=== PATIENT | male | born 1955 | race Caucasian/White ===

== ENCOUNTER 2019-10-18 11:20 | Outpatient (CLI) | payer MEDICARE, BC, SELFPAY ==
--- NOTE | ~2019-10-18 | XR_ITS ---
EXAMINATION: XR hip BI wo pelvis INDICATION: Bilateral hip pain TECHNIQUE: Two views of each hip are obtained. COMPARISON: None available FINDINGS: There is no fracture. There is severe right and moderate left hip osteoarthritis. The soft tissues are unremarkable. The femoral heads are well-seated in their acetabula. IMPRESSION: 1. Severe right and moderate left hip osteoarthritis. Reviewed, dictated and finalized at location A.
== END 2019-10-18 11:21 | disposition home or self-care (01) ==
LOC: CHSIMG 11:23
PROVIDERS: PCP Internal Medicine; Visit Provider Internal Medicine
DX: M25.552 Pain in left hip (principal); M25.551 Pain in right hip
CPT/HCPCS: 73521

== ENCOUNTER 2019-10-30 08:08 | Outpatient (CLI) | payer MEDICARE, BC, SELFPAY ==
--- NOTE | ~2019-10-30 | MR_ITS ---
EXAMINATION: MR hip LT wo con DATE: 10/30/2019 10:30 INDICATION: Left hip pain. TECHNIQUE: Magnetic resonance imaging (MRI) of the left hip was performed without intravenous contras t. Sequences included axial and coronal PD-weighted FS FSE and axial T1-weighted FSE of the pelvis. S equences of the hip included 2D FIESTA, T1-weighted fast GRE, and axial, coronal, and sagittal PD-josé miguel ghted FS FSE. COMPARISON: Pelvis and hip radiographs 10/18/2019 FINDINGS: Bones/cartilage: Bone alignment is normal. No fracture. There is decreased femoral head/neck offset, consistent with f emoral acetabular impingement. There is severe left hip osteoarthritis including full-thickness carti yusuf loss superiorly, superolateral acetabular bone marrow edema, and marginal osteophytes. Labrum: There is widespread tearing of the left acetabular labrum. Fluid: There is a small left hip joint effusion. Soft tissues: There is a 4.0 x 2.7 cm mass in the subcutaneous left buttock at the intergluteal cleft. The left angie opsoas tendon at left gluteal tendons are normal. There is moderate tendinopathy of the left hamstrin g origins. Symmetric prominent fat in the inguinal canals may be small hernias. IMPRESSION: 1. Severe left hip osteoarthritis. 2. Small left hip joint effusion. 3. 4.0 x 2.7 cm mass in the subcutaneous left buttock the intergluteal cleft, which may be a sebaceou s cyst. Neoplasm cannot be excluded. Reviewed, dictated and finalized at location A. IMPRESSION: 1. Severe left hip osteoarthritis. 2. Small left hip joint effusion. 3. 4.0 x 2.7 cm mass in the subcutaneous left buttock the intergluteal cleft, w hich may be a sebaceous cyst. Neoplasm cannot be excluded.
--- NOTE | ~2019-10-30 | MR_ITS ---
EXAMINATION: MR hip RT wo con DATE: 10/30/2019 10:30 INDICATION: Right hip pain. TECHNIQUE: Magnetic resonance imaging (MRI) of the right hip was performed without intravenous contra st. Sequences included axial and coronal PD-weighted FS FSE and axial T1-weighted FSE of the pelvis. Sequences of the hip included 2D FIESTA, T1-weighted fast GRE, and axial, coronal, and sagittal PD-we ighted FS FSE. COMPARISON: Pelvis and right hip radiographs 10/18/2019 FINDINGS: Bones/cartilage: Bone alignment is normal. No fracture. There is decreased right femoral head/neck offset, consistent with femoral acetabular impingement. There is advanced right hip osteoarthritis including full-thickn ess cartilage loss superiorly, cortical remodeling, subchondral edema like marrow signal intensity, a nd osteophytes. Labrum: There is widespread tearing of the right acetabular labrum. Fluid: There is a small right hip joint effusion. There is mild right trochanteric bursitis. Soft tissues: The right gluteal tendons and iliopsoas tendon are normal. There is moderate tendinopathy of right rios mstring origin. IMPRESSION: 1. Advanced right hip osteoarthritis. Reviewed, dictated and finalized at location A.
== END 2019-10-30 08:09 | disposition home or self-care (01) ==
PROVIDERS: PCP Internal Medicine; Visit Provider Internal Medicine
DX: M25.552 Pain in left hip (principal); M25.551 Pain in right hip
CPT/HCPCS: 73721

== ENCOUNTER 2019-12-08 09:27 | Outpatient (CLI) | payer MEDICARE, BC, SELFPAY ==
--- NOTE | ~2019-12-08 | XR_ITS ---
EXAMINATION: XR chest 2V DATE: 12/08/2019 10:38 INDICATION: COPD and hyperlipidemia TECHNIQUE: PA and lateral views of the chest are obtained. COMPARISON: None available FINDINGS: The lungs are free of acute opacities. There is no pleural effusion or pneumothorax. The ca rdiomediastinal silhouette is normal. There is mild thoracic spondylosis. IMPRESSION: 1. No acute cardiopulmonary abnormality. Reviewed, dictated and finalized at location A.
--- NOTE | 2019-12-08 10:15 | ECG_ITS ---
Measurements Intervals [place] Rate: 66 P: 30 UT: 148 QRS: 10 QRSD: 98 T: 17 QT: 381 QTc: 402 Interpretive Statements SINUS RHYTHM EARLY PRECORDIAL R/S TRANSITION BASELINE ARTIFACT- I, II, III, AVR, AVL, AVF BORDERLINE ECG Electronically Signed On 12-08-2019 10:38:33 CDT by Luis Viramontes D.O.
[2019-12-08 10:46] LABS: Basophils Percent Auto 0.5 % (0.2-1.2); Eosinophils Absolute Auto 0.1 K/mm3 (0-0.3); Eosinophils Percent Auto 0.7 % (0-4.4); Hematocrit 44.8 % (42.0-52.0); Hemoglobin 14.9 g/dL (14.0-18.0); Immature Granulocyte Absolute 0.04 K/mm3 (0.00-0.031); Immature Granulocyte Percent A 0.5 % (0-0.5); Lymphocytes Absolute Auto 1.43 K/mm3 (0.9-3.2); Lymphocytes Percent Auto 17.1 % (18.3-44.2); Mean Corpuscular HGB Conc 33.3 g/dl (32-36); Mean Corpuscular Volume 93.1 fl (80-100); Monocytes Absolute Auto 0.5 K/mm3 (0.1-0.6); Monocytes Percent Auto 5.4 % (2.6-8.5); Neutrophils Absolute Auto 6.3 K/mm3 (1.3-6.7); Neutrophils Percent Auto 75.8 % (45.5-73.1); Platelet Count Result 238 k/mm3 (150-375); Red Blood Count 4.81 M/mm3 (4.6-6.20); Red Cell Distribution Width 13.3 % (11.5-14.5); White Blood Count 8.4 K/mm3 (4.5-10.0)
[2019-12-08 11:03] LABS: Urine Cotinine POSITIVE
[2019-12-08 11:30] LABS: Albumin Level 4.3 g/dL (3.5-5.1); Anion Gap 7 mmol/L (8-16); Blood Urea Nitrogen 20 mg/dL (9-20); Calcium 8.9 mg/dL (8.4-10.2); Carbon Dioxide 23 mmol/L (22-30); Chloride 108 mmol/L (98-107); Estimated Glomerular Filt Rate > 60; Glucose 104 mg/dL (75-110); Potassium 4.7 mmol/L (3.4-5.0); Sodium 138 mmol/L (137-145)
[2019-12-08 11:55] LABS: Hemoglobin A1C 5.7 % (<5.7)
== END 2019-12-08 09:28 | disposition home or self-care (01) ==
PROVIDERS: PCP Internal Medicine; Visit Provider Orthopaedic Surgery
DX: Z01.818 Encounter for other preprocedural examination (principal); M16.11 Unilateral primary osteoarthritis, right hip
CPT/HCPCS: 36415; 71046; 80048; 80307; 82040; 83036; 85025; 86850; 86900; 86901; 87070; 93005

== ENCOUNTER 2020-08-19 06:00 | Emergency (ER) | payer MEDICARE, BC, SELFPAY ==
[2020-08-19 06:00] VITALS: BP 152/93; PULSE 65; RESP 20; TEMP 36.6; O2SAT 99
--- NOTE | 2020-08-19 06:06 | ED.EYEPROB ---
HPI - Eye Problem General Chief complaint: Eye Problems Stated complaint: Foreign body in right eye Time Seen by Provider: 08/19/20 06:05 Source: patient Mode of arrival: ambulatory Limitations: no limitations History of Present Illness HPI Narrative: Patient was grinding 2 days ago. Since then he has felt he has something in his right eye. He complains of severe sharp discomfort, not relieved by irrigation at home. Associated excess tearing. nothing has decreased the discomfort. No other associated signs/symptoms. He has been continually suffering with this. chief complaint: eye pain Onset (ago): day(s) Onset description: sudden Duration: constant Location: right eye Eye Symptoms: photophobia Place: home Mechanism: occurred while hammering/grinding Severity: severe Severity scale (1-10): 6 If Pain, Quality: sharp Related Data Home Medications Medication Instructions Recorded Confirmed esomeprazole magnesium 40 mg PO DAILY PRN 03/22/19 08/19/20 Allergies Allergy/AdvReac Type Severity Reaction Status Date / Time No Known Allergies Allergy Verified 12/08/19 09:46 Review of Systems Constitutional: Constitutional: Reports no additional constitutional complaints Eyes: Eyes: Reports no additional eye complaints ENT: Reports system reviewed and no additional complaints, except as documented Cardiovascular: Cardiovascular: Reports no additional cardiovascular complaints Respiratory: Respiratory: Reports no additional respiratory complaints Gastrointestinal: Gastrointestinal: Reports no additional gastrointestinal complaints Genitourinary: Genitourinary: Reports no additional male genitourinary complaints Musculoskeletal: Musculoskeletal: Reports no additional musculoskeletal complaints Integumentary/Breasts: Skin/Breast: Reports system reviewed and no additional complaints, except as docu Neurologic: Reports system reviewed and no additional complaints, except as documented Psychiatric: Psychiatric: Reports no additional psychiatric complaints Endocrine: Endocrine: Reports no additional endocrine complaints Hematologic/Lymphatic: Hematologic/Lymphatic: Reports no additional hematologic/lymphatic complaints Allergic/Immunologic: Allergic/Immunologic: Reports no additional allergic/immunologic complaints PMFSH Past Medical History Medical History Arthritic-like pain COPD (chronic obstructive pulmonary disease) GERD (gastroesophageal reflux disease) Hyperlipidemia Sleep apnea Surgical History Surgical History History of arthroplasty of both knees Hx of appendectomy Hx of repair of left rotator cuff Family History Family History (Updated 08/19/20 @ 06:35 by Nicolas Sepulveda MD) Other No significant family history Social History Social History (Updated 03/25/19 @ 11:50 by Linda Jaeger APRN) Smoking packs per day: 0.5 Smoking cigarettes per day: 10.0 Years smoked: 25 Smoking pack-years: 12.50 Smoking status: Former smoker Tobacco type: cigarettes Additional smoking assessment comments: QUITE 2004 Alcohol intake: current Drinks per week: 2 Substance use: never Gender identity (if verbalized by the patient): Male Spiritual care concerns: No Exam Const: General: alert Orientation/consciousness: patient oriented x3 HENMT: Ears: external ears normal General nose exam: Normal external nose present Mouth: Yes Normal oral and palatal mucosa present Throat: posterior oropharynx normal Eyes: Other: Eye exam. Eye was examined after placing 3 drops of tetracaine, then fluorescent dye was placed. He appears to have a small corneal abrasion about 3mm just directly above the pupil. He feels a foreign body there. It appears as just a corneal abrasion. No other pathology. Neck: Neck: normal visual inspection Chest: Chest palpation & inspection: nor
[2020-08-19] MEDS: ERYTHROMYCIN OPHTH OINTMENT 3.5 GM TUBE 1 APPLIC RIGHT EYE (06:09)
[2020-08-19] MEDS: TETRACAINE HCL 0.5% OPHTH SOLN 4 ML BTL 1 DROP EACH EYE (06:09)
[2020-08-19] MEDS: DACRIOSE EYE IRRIGATION 118 ML BOTTLE RIGHT EYE (06:09)
[2020-08-19] MEDS: FLUORESCEIN SOD 1 MG/STRIP RIGHT EYE (06:09)
[2020-08-19 06:34] VITALS: BP 150/90; PULSE 74; RESP 20; O2SAT 99
== END 2020-08-19 06:37 | disposition home or self-care (01) ==
PROVIDERS: Emergency Provider Emergency Medicine; PCP Internal Medicine
DX: S05.01XA Injury of conjunctiva and corneal abrasion without foreign body, right eye, initial encounter (principal)
CPT/HCPCS: 99282; 99283; A9270

== ENCOUNTER 2021-05-04 07:40 | Outpatient (CLI) | payer MEDICARE, BC, SELFPAY ==
--- NOTE | ~2021-05-04 | CT_ITS ---
EXAMINATION: CT lung screening EXAM DATE: 05/04/2021 08:09 INDICATION: Personal history of tobacco dependence, Osteoporosis. TECHNIQUE: Spiral low dose CT of the chest without contrast. Axial, coronal and sagittal images were reviewed. The dose-length product (DLP) for this examination was 130.55 mGy-cm. The exposure was t ailored according to patient size (auto mA exposure control), and iterative reconstruction (ASIR) was used as additional dose reduction technique. Comparison is made to prior examination from 02/16/2019 . FINDINGS: The lungs are clear. Tracheobronchial tree is patent. There is no mediastinal, hilar o r axillary lymphadenopathy. There are no pleural or pericardial effusions. There is no pneumothor ax. Heart normal in size. No evidence of coronary arterial calcification. Mild emphysema. Upper a bdomen is unremarkable. There is thoracic spondylosis without osteoblastic or osteolytic lesions id entified. IMPRESSION: Lung-RADS category 1, negative (<1%chance of malignancy); recommend continued LDCT screen ing in 1 year. > Reviewed, dictated and finalized at location A. 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 >
--- NOTE | ~2021-05-04 | DEXA_ITS ---
Bone Density Report Name: GAMALIEL SIMMONS Age: 65 Sex: Male Ethnicity: White Date of : 1955 Indication: osteopenia; prior fracture; rheumatoid arthritis; Referring Provider: Jori Otero Study: Bone densitometry was performed. Exam Date: May 04, 2021 Accession number: [id number] Bone Density: Region BMD T-score Z-score Classification AP Spine(L2, L3, L4) 0.939 -1.6 -0.8 Osteopenia World Health Organization criteria for BMD impression classify patients as: Normal (T-score at or above -1.0), Osteopenia (T-score between -1.0 and -2.5), or Osteoporosis (T-score at or below -2.5). Previous Exams: Region Exam Age BMD T-score BMD Change BMD Change Date g/cm2 vs Baseline vs Previous AP Spine (L2-L4) 05/04/2021 65 0.939 -1.6 -0.024 (-2.5%) -0.024 (-2.5%) 02/22/2019 63 0.963 -1.4 *Denotes significance at 95% confidence level, LSC for AP Spine = 0.022 g/cm2 # Denotes dissimilar scan types or analysis methods Clinical Information Provided by Patient: Have had a previous hip or vertebral fracture Has had a low trauma fracture Has rheumatoid arthritis Has used the following medications: Vitamin D, Calcium Patient maximum height was 70 No regular weight bearing exercise Drinks caffeinated beverages Impression: The patient has low bone mass, based on the Total Spine T-score. The patient has risk factors, including: previous fracture. No significant bone loss was observed. Discussion: INCREASED RISK OF FRACTURE DUE TO HISTORY OF LOW TRAUMA FRACTURE. The patient's previous fracture puts the patient at high risk of a future fracture. In untreated patients, the risk of osteoporotic fracture increases approximately two-fold for each 1.0 SD decrease in T-score. Low bone density is not the only risk factor for fracture; also consider factors such as patient's age, frailty or poor health, risk of falling, risk of injury, previous osteoporotic fracture, family history of osteoporosis, cigarette smoking, low body weight, etc. Not everyone with a low trauma fracture has osteoporosis; osteomalacia and other metabolic bone disorders should also be considered. Patients who have osteoporosis should be evaluated for specific diseases and conditions (secondary causes) that may cause or contribute to bone loss and fracture risk. National Osteoporosis Foundation (NOF) recommends pharmacologic intervention for patients with a prior low trauma hip or vertebral fracture regardless of BMD T-score. The patient should follow a healthful lifestyle (good nutrition with adequate calcium and vitamin D, and appropriate weight-bearing exercise). Follow-Up: Consider a repeat BMD and Vertebral Fracture Assessment (VFA) exam in 2 years or sooner if medically necessary, t
== END 2021-05-04 07:41 | disposition home or self-care (01) ==
LOC: CHSIMG 07:41
PROVIDERS: PCP Internal Medicine; Visit Provider Internal Medicine
DX: Z12.2 Encounter for screening for malignant neoplasm of respiratory organs (principal); Z87.891 Personal history of nicotine dependence; M81.0 Age-related osteoporosis without current pathological fracture
CPT/HCPCS: 71271; 77080

== ENCOUNTER 2021-08-16 08:48 | Outpatient (CLI) | payer MEDICARE, BC, SELFPAY ==
--- NOTE | ~2021-08-16 | XR_ITS ---
EXAMINATION: XR heel RT min 2V DATE: 08/16/2021 09:11 INDICATION: Right-sided Achilles tendinitis. TECHNIQUE: 2 views of right calcaneus were obtained. COMPARISON: None. FINDINGS: Bone alignment is normal. No fracture. Joint spaces are normal. No calcaneal bone spurs. IMPRESSION: 1. Normal calcaneus. Reviewed, dictated and finalized at location A. IMPRESSION: 1. Normal calcaneus.
[2021-08-16 09:05] LABS: Hematocrit 43.6 % (40.0-54.0); Hemoglobin 14.5 g/dL (14.0-18.0); Mean Corpuscular HGB Conc 33.3 g/dL (32.0-36.0); Mean Corpuscular Volume 93.2 fL (78.0-102.0); Mean Platelet Volume 9.8 fl (8.7-11.0); Platelet Count Result 218 K/mm3 (150-420); Red Blood Count 4.68 M/mm3 (4.70-6.10); Red Cell Distribution Width 13.4 % (11.6-14.4); White Blood Count 4.8 K/mm3 (4.8-10.8)
[2021-08-16 09:53] LABS: Alanine Aminotransferase 29 U/L (16-63); Alkaline Phosphatase 110 U/L (46-116); Anion Gap 10 mmol/L (8-16); Aspartate Amino Transferase 19 U/L (15-37); Bilirubin,Total 0.3 mg/dL (0.00-1.00); Blood Urea Nitrogen 19 mg/dL (7-18); Calcium 9.1 mg/dL (8.5-10.1); Carbon Dioxide 24 mmol/L (21-32); Chloride 104 mmol/L (98-108); Cholesterol 199 mg/dL (0-200); Estimated Glomerular Filt Rate > 60; Glucose 100 mg/dL (70-99); HDL Direct 27 mg/dL (40-60); LDL Cholesterol Calculated 144 mg/dL (<130); Osmolality Calculated 288 mOsm/kg (285-295); Potassium 4.4 mmol/L (3.5-5.1); Prostate Specific Antigen 1.2 ng/mL (< OR = 4.0); Sodium 138 mmol/L (136-145); Total Protein 7.3 g/dL (6.4-8.2); Triglycerides 142 mg/dL (0-150)
== END 2021-08-16 08:49 | disposition home or self-care (01) ==
LOC: CHSLAB 08:54
PROVIDERS: PCP Family Medicine; Visit Provider Family Medicine
DX: M76.60 Achilles tendinitis, unspecified leg (principal); J44.9 Chronic obstructive pulmonary disease, unspecified; E78.5 Hyperlipidemia, unspecified; R35.1 Nocturia
CPT/HCPCS: 36415; 73650; 80053; 80061; 84153; 85027; G0103

== ENCOUNTER 2022-08-19 07:31 | Outpatient (CLI) | payer MEDICARE, BC, SELFPAY ==
[2022-08-19 07:49] LABS: Hematocrit 43.8 % (37.0-46.0); Hemoglobin 14.9 g/dL (12.4-15.3); Mean Corpuscular Hemoglobin 31.6 pg (27.0-31.0); Mean Corpuscular Volume 92.8 fL (78.0-102.0); Mean Platelet Volume 9.7 fl (8.7-11.0); Platelet Count Result 212 K/mm3 (150-420); Red Blood Count 4.72 M/mm3 (4.70-6.10); Red Cell Distribution Width 13.6 % (11.6-14.4); White Blood Count 5.3 K/mm3 (4.8-10.8)
[2022-08-19 08:02] LABS: Hemoglobin A1C 5.6 % (<5.7)
[2022-08-19 08:35] LABS: Alanine Aminotransferase 36 U/L (16-63); Albumin Level 3.9 g/dL (3.4-5.0); Alkaline Phosphatase 116 U/L (46-116); Anion Gap 8 mmol/L (8-16); Aspartate Amino Transferase 22 U/L (15-37); Bilirubin,Total 0.3 mg/dL (0.00-1.00); Blood Urea Nitrogen 15 mg/dL (7-18); Carbon Dioxide 27 mmol/L (21-32); Chloride 107 mmol/L (98-108); Cholesterol 203 mg/dL (0-200); Estimated Glomerular Filt Rate > 60; Glucose 119 mg/dL (70-99); HDL Direct 28 mg/dL (40-60); LDL Cholesterol Calculated 139 mg/dL (<130); Osmolality Calculated 295 mOsm/kg (285-295); Potassium 4.5 mmol/L (3.5-5.1); Prostate Specific Antigen 1.2 ng/mL (< OR = 4.0); Sodium 142 mmol/L (136-145); Thyroid Stimulating Hormone 0.77 uIU/mL (0.36-3.74); Triglycerides 182 mg/dL (0-150)
[2022-08-22 17:59] LABS: Vitamin D 25 Hydroxy 38 ng/mL (30-100)
== END 2022-08-19 07:32 | disposition home or self-care (01) ==
LOC: CHSLAB 07:34
PROVIDERS: PCP Family Medicine; Visit Provider Nurse Practitioner Family
DX: Z12.5 Encounter for screening for malignant neoplasm of prostate (principal); E78.5 Hyperlipidemia, unspecified; K21.9 Gastro-esophageal reflux disease without esophagitis; J44.9 Chronic obstructive pulmonary disease, unspecified; N18.4 Chronic kidney disease, stage 4 (severe); R73.03 Prediabetes
CPT/HCPCS: 36415; 80053; 80061; 82306; 83036; 84153; 84439; 84443; 85027; G0103

== ENCOUNTER 2022-08-26 07:45 | Outpatient (CLI) | payer MEDICARE, BC, SELFPAY ==
--- NOTE | ~2022-08-26 | XR_ITS ---
[id number] 08/26/2022 08:04 Indication: Right knee pain Procedure: 2 views right knee Comparison: No prior studies for comparison. Findings: There is mild tricompartment osteoarthritis of the right knee. Normal mineralization. No fr acture, subluxation or dislocation. Small joint effusion. No foreign bodies. Impression: 1: Mild osteoarthritis of the right knee. 2: Small effusion. Reviewed, dictated and finalized at location B. Impression: 1: Mild osteoarthritis of the right knee. 2: Small effusion.
--- NOTE | ~2022-08-26 | CT_ITS ---
EXAMINATION: CT lung screening DATE: 08/26/2022 08:01 INDICATION: Lung cancer screening TECHNIQUE: Computed tomography (CT) of the chest was performed without intravenous contrast. The dose -length product was 148.30 mGy-cm. Automated exposure control and iterative reconstruction technique were employed. COMPARISON: CT dated 05/04/2021 FINDINGS: Heart size is normal. Stable borderline size mediastinal lymph nodes, most likely reactive. No significant pleural or pericardial effusion. Visualized aspects of the abdomen are unremarkable. There is gynecomastia. No endobronchial lesions. No pneumothorax. No focal airspace consolidation. No new pulmonary nodules or masses. Mild thoracic spondylosis. No focal lytic or blastic lesions. IMPRESSION: 1. Lung-RADS category 1: Negative. Continue annual screening with noncontrast low-dose chest CT in 12 months. Reviewed, dictated and finalized at location B. IMPRESSION: 1. Lung-RADS category 1: Negative. Continue annual screening with noncontrast l ow-dose chest CT in 12 months.
== END 2022-08-26 07:46 | disposition home or self-care (01) ==
LOC: CHSIMG 07:47
PROVIDERS: PCP Family Medicine; Visit Provider Nurse Practitioner Family
DX: M17.11 Unilateral primary osteoarthritis, right knee (principal); Z12.2 Encounter for screening for malignant neoplasm of respiratory organs; Z87.891 Personal history of nicotine dependence; M25.461 Effusion, right knee
CPT/HCPCS: 71271; 73560

== ENCOUNTER 2022-09-04 23:54 | Emergency (ER) | payer MEDICARE, BC, SELFPAY ==
--- NOTE | ~2022-09-04 | CT_ITS ---
Non-contrast CT scan of the Abdomen and Pelvis Clinical indication: Right flank pain Technique: 2.5 mm axial scans were obtained through the abdomen and pelvis without intravenous or or al contrast. Dose reduction technique was used on this scan by utilizing automated exposure control a nd iterative reconstruction technique. The dose-length product (DLP) was 901.45 mGy-cm. Findings: Images through the lung bases reveal no abnormalities. There is a 4 mm stone at the proximal to mid right ureter, resulting in mild right hydroureteronephro sis to this level, with extensive asymmetric right perinephric stranding. No left renal or left urete ral stone. No left hydronephrosis. The liver, spleen, pancreas, gallbladder, and adrenals appear normal. There are atherosclerotic calci fications of the aorta. There is no evidence of bowel obstruction. Images through the pelvis are degraded by streak artifact from bilateral hip arthroplasty. There is n o evidence of ascites or lymphadenopathy. Urinary bladder grossly unremarkable. No pelvic mass identi fied. There is a 4.3 x 3.3 cm cystic mass or fluid collection in the subcutaneous soft tissues in the medial left buttock, near the ischiorectal fossa region (axial image 180). Impression: 4 mm proximal to mid right ureteral stone with associated mild right hydronephrosis and right perinep hric stranding. 4.3 x 3.3 cm cystic mass or fluid collection in subcutaneous soft tissues in the medial left buttock. Consider sebaceous cyst. Abscess less likely given lack of apparent inflammatory change. Correlate w ith physical exam any relevant symptomatology. Reviewed, dictated and finalized at location . Impression: 4 mm proximal to mid right ureteral stone with associated mild right hydronephr osis and right perinephric stranding. 4.3 x 3.3 cm cystic mass or fluid collection in subcutaneous soft tissues in th e medial left buttock. Consider sebaceous cyst. Abscess less likely given lack of apparent inflammatory change. Correlate with physical exam any relevant symp tomatology.
[2022-09-04 23:55] VITALS: BP 145/105; PULSE 58; RESP 18; O2SAT 98
--- NOTE | 2022-09-04 23:56 | ED.ABDPAIN ---
HPI - Abdominal Pain General Chief Complaint: Unspecified Stated Complaint: Abdominal Source: patient Mode of arrival: ambulatory Limitations: no limitations History of Present Illness HPI narrative: 66-year-old male, ex-smoker with a history of arthritis, COPD, JOSSELIN, colonic polyps, migraine, status post appendectomy presents to the ER with a 12 hour history of -- right CV angle pain/right flank pain which has radiated down to the right iliac fossa. Pain is intermittent. -- Patient has nausea with 1 episode of vomiting. -- No fever or chills. No prior episodes of similar pain. MD elicited complaint: flank pain Onset (ago): hour(s) ( Started 12 hours ago) Pain Consistency: intermittent Location: R flank Severity: severe Quality: aching Radiation: RLQ Exacerbating factors: nothing Relieving factors: nothing Associated symptoms: nausea and vomiting Related Data Home Medications Medication Instructions Recorded Confirmed acetaminophen 650 mg 650 mg PO Q8H 07/24/22 08/23/22 tablet,extended release (Tylenol Arthritis Pain) glucosamine 750 oy-yfgbhi-tng 2-C tablet PO DAILY 07/24/22 08/23/22 30 mg-D3 1,000 unit-thea 1 mg tablet (Ziqlmfnxofh-Wuahatxizgn-OGF + vitD) multivitamin (One Daily 1 tablet PO DAILY 07/24/22 08/23/22 Multivitamin tablet) naproxen sodium 220 mg tablet 220 mg PO Q12H PRN 07/24/22 08/23/22 (Aleve) Allergies Allergy/AdvReac Type Severity Reaction Status Date / Time [id number] Reductase AdvReac Severe Joint Pain Verified 08/23/22 07:49 Inhibitor Review of Systems Review of Systems: All systems reviewed & are unremarkable except as noted in HPI and below Constitutional: Constitutional: Reports as per HPI and Reports no additional constitutional complaints Eyes: Eyes: Reports as per HPI and Reports no additional eye complaints ENT: Reports system reviewed and no additional complaints, except as documented and Reports as per HPI Cardiovascular: Cardiovascular: Reports as per HPI and Reports no additional cardiovascular complaints Respiratory: Respiratory: Reports as per HPI and Reports cough Gastrointestinal: Gastrointestinal: Reports as per HPI, Reports abdominal pain, Reports nausea and Reports vomiting Genitourinary: Genitourinary: Reports no additional male genitourinary complaints Musculoskeletal: Musculoskeletal: Reports no additional musculoskeletal complaints and Reports as per HPI Integumentary/Breasts: Skin/Breast: Reports system reviewed and no additional complaints, except as docu and Reports as per HPI Neurologic: Reports system reviewed and no additional complaints, except as documented and Reports as per HPI Psychiatric: Psychiatric: Reports no additional psychiatric complaints and Reports as per HPI Endocrine: Endocrine: Reports no additional endocrine complaints and Reports as per HPI Hematologic/Lymphatic: Hematologic/Lymphatic: Reports no additional hematologic/lymphatic complaints and Reports as per HPI Allergic/Immunologic: Allergic/Immunologic: Reports no additional allergic/immunologic complaints and Reports as per HPI [facility] Past Medical History Medical History Arthritic-like pain COPD (chronic obstructive pulmonary disease) GERD (gastroesophageal reflux disease) Hyperlipidemia Sleep apnea Surgical History Surgical History H/O arthroscopic knee surgery Bilateral History of carpal tunnel repair Bilateral Hx of appendectomy Hx of repair of left rotator cuff Status post hip surgery Bilateral hip replacements Family History Family History Other No significant family history Social History Social History Smoking packs per day: 1 Smoking cigarettes per day: 20.0 Years smoked: 25 Smoking pack-
[2022-09-05] MEDS: ONDANSETRON INJ 4 MG/2 ML VIAL IV PUSH (00:13)
[2022-09-05] MEDS: LACTATED RINGERS 1,000 ML 999 ML IV CONT (00:15)
[2022-09-05] MEDS: KETOROLAC 30 MG/ML VIAL (*BKC) IV PUSH (00:15)
[2022-09-05 00:16] LABS: Basophils Absolute Auto 0.05 K/mm3 (0.00-0.10); Basophils Percent Auto 0.4 % (0.0-1.0); Eosinophils Absolute Auto 0.24 K/mm3 (0.02-0.50); Eosinophils Percent Auto 1.8 % (1.0-6.0); Hematocrit 42.7 % (37.0-46.0); Hemoglobin 14.2 g/dL (12.4-15.3); Immature Granulocyte Absolute 0.08 K/mm3 (0.00-0.00); Immature Granulocyte Percent A 0.6 % (0.0-0.0); Lymphocytes Absolute Auto 1.76 K/mm3 (1.10-4.50); Lymphocytes Percent Auto 13.2 % (18.0-42.0); Mean Corpuscular HGB Conc 33.3 g/dL (32.0-36.0); Mean Corpuscular Hemoglobin 30.8 pg (27.0-31.0); Mean Corpuscular Volume 92.6 fL (78.0-102.0); Monocytes Absolute Auto 1.17 K/mm3 (0.10-0.90); Monocytes Percent Auto 8.7 % (2.0-11.0); Neutrophils Absolute Auto 10.1 K/mm3 (1.7-7.2); Neutrophils Percent Auto 75.3 % (50.0-70.0); Platelet Count Result 212 K/mm3 (150-420); Red Blood Count 4.61 M/mm3 (4.70-6.10); Red Cell Distribution Width 13.4 % (11.6-14.4); White Blood Count 13.4 K/mm3 (4.8-10.8)
[2022-09-05 00:29] LABS: Lactic Acid Reflex 0.8 mmol/L (0.4-2.0)
[2022-09-05 00:35] LABS: Alanine Aminotransferase 37 U/L (16-63); Albumin Level 3.7 g/dL (3.4-5.0); Alkaline Phosphatase 118 U/L (46-116); Anion Gap 10 mmol/L (8-16); Aspartate Amino Transferase 29 U/L (15-37); Bilirubin,Total 0.5 mg/dL (0.00-1.00); Blood Urea Nitrogen 22 mg/dL (7-18); Carbon Dioxide 24 mmol/L (21-32); Chloride 100 mmol/L (98-108); Estimated Glomerular Filt Rate 53; Glucose 154 mg/dL (70-99); Lipase 45 U/L (16-77); Osmolality Calculated 284 mOsm/kg (285-295); Sodium 134 mmol/L (136-145); Troponin I 5.3 ng/L (0.00-60.4)
[2022-09-05 00:40] LABS: Calcium 8.5 mg/dL (8.5-10.1)
[2022-09-05] MEDS: HYDROmorphone HCL INJ (*CRX) 2 MG/ML VIAL 0.5 MG IV PUSH (00:48)
[2022-09-05 01:22] LABS: Appearance Urine Clear (Clear); Bilirubin Urine Negative (Negative); Blood Urine 2+ (Negative); Color Urine Yellow (Yellow); Glucose Urine UA Negative (Negative); Ketones Urine 1+ (Negative); Leukocyte Esterase Ur Negative LEU/UL (Negative); Nitrate Urine Negative (Negative); Protein Urine Negative (Negative); Specific Grav Ur >= 1.030 (1.010-1.020); Urobilinogen Urine 0.2 mg/dL (0.2-1.0); pH Urine 5.5 (5.0-8.0)
[2022-09-05 01:26] LABS: Add Urine Microscopic? YES; Bacteria Urine Trace /hpf; Squamous Epithelial Cell Urine Rare /hpf (Few); WBC Urine None seen /hpf (0-3)
[2022-09-05] MEDS: TAMSULOSIN HCL 0.4 MG CAPSULE PO (02:25)
[2022-09-05] MEDS: HYDROcodone/acetaminophen (*CRX) 5-325 MG TABLET 1 TAB PO (02:25)
[2022-09-05 02:30] VITALS: BP 129/81; PULSE 73; RESP 16; O2SAT 97
== END 2022-09-05 02:31 | disposition home or self-care (01) ==
PROVIDERS: Emergency Provider Internal Medicine Critical Care Medicine; PCP Family Medicine
DX: N20.0 Calculus of kidney (principal); E78.5 Hyperlipidemia, unspecified; Z87.891 Personal history of nicotine dependence
CPT/HCPCS: 36415; 74176; 80053; 81001; 83605; 83690; 84484; 85025; 96361; 96374; 96375; 99284; A9270; J1170; J1885; J2405; J7120

== ENCOUNTER 2022-09-27 01:07 | Day surgery (SDC) | payer MEDICARE, BC, SELFPAY ==
[2022-09-23 13:06] VITALS: BMI 27.1
[2022-09-27 08:33] VITALS: BP 137/73; PULSE 65; RESP 18; TEMP 36.4; O2SAT 100; BMI 26.7
[2022-09-27] MEDS: LACTATED RINGERS 1,000 ML 150 ML IV CONT (08:50)
--- NOTE | 2022-09-27 08:56 | WPDANESEPPF ---
Anes - Initial Pre Proc Eval Procedure: Operation Date: 09/27/22 09:30 Proposed Procedures p Colonoscopy - Nicolas Temple MD Date/Time: 09/27/22 08:56 Surgeon: Nicolas Temple MD Pre Op Diagnosis: hx colon polyps Patient Data Age: 66 Gender: M Height: 1.83 m Weight: 89.4 kg Last Vital Signs Temp 36.4 C L 09/27/22 08:33 Pulse 65 09/27/22 08:33 Resp 18 09/27/22 08:33 BP 137/73 09/27/22 08:33 Pulse Ox 100 09/27/22 08:33 O2 Del Method Room Air 09/27/22 08:33 Allergies Allergy/AdvReac Type Severity Reaction Status Date / Time Oeqehwp-UKD-NpV Reductase AdvReac Severe Joint Pain Verified 09/27/22 08:41 Inhibitor Home Medications Medication Instructions Recorded Confirmed Type esomeprazole magnesium 40 mg 40 mg PO DAILY PRN Indigestion #90 08/29/21 09/27/22 Rx capsule,delayed release caps acetaminophen 650 mg 650 mg PO Q8H 07/24/22 09/27/22 History tablet,extended release (Tylenol Arthritis Pain) multivitamin (One Daily 1 tablet PO DAILY 07/24/22 09/27/22 History Multivitamin tablet) naproxen sodium 220 mg tablet 220 mg PO Q12H PRN Pain 07/24/22 09/27/22 History (Aleve) albuterol sulfate 90 mcg/actuation 1 inh inhalation Q4-6H PRN 08/23/22 09/27/22 Rx breath activated powder inhaler shortness of breath #1 ea budesonide 160 mcg-glycopyr 9 2 inh inhalation BID #10.7 grams 08/23/22 09/27/22 Rx mcg-formot 4.8 mcg/actuation HFA inhaler (Breztri Aerosphere) sildenafil 100 mg tablet See Rx Instructions .Route 08/30/22 09/27/22 Rx .COMPLEX #30 tabs rizatriptan 10 mg tablet (Maxalt) See Rx Instructions PO .COMPLEX 09/23/22 09/27/22 History PRN migraines Patient hx anesthesia problems: none Family hx anesthesia problems: none Results Review: All pre-operative results and documents have been reviewed as part of the pre-operative evaluation. [facility] Past Medical History Medical History Arthritic-like pain COPD (chronic obstructive pulmonary disease) GERD (gastroesophageal reflux disease) Hyperlipidemia Sleep apnea Surgical History Surgical History H/O arthroscopic knee surgery Bilateral History of carpal tunnel repair Bilateral Hx of appendectomy Hx of repair of left rotator cuff Status post hip surgery Bilateral hip replacements Family History Family History Other No significant family history Social History Social History Smoking packs per day: 1 Smoking cigarettes per day: 20.0 Years smoked: 50 Smoking pack-years: 50.00 Smoking status: Current some day smoker Tobacco type: cigarettes Smokeless tobacco user: chewing tobacco Additional smoking assessment comments: QUIT 2001 Alcohol intake: current Drinks per week: 2 Alcohol use details: Socially Substance use: never Substance use type: does not use Lack of Transportation: No Lack of Food: Never True Current Housing: I Have Housing Concerned About Future Housing: No Difficulty Paying Gas/Electric Bills: No Difficulty Paying for Meds: No Currently Unemployed: No Education: High School Diploma/GED Difficulty w/ Childcare or Family Care: No Living arrangements: other Additional living arrangements comments: With Girlfriend Occupation/Education: retired Gender identity (if verbalized by the patient): Male Spiritual care concerns: No Anes - Eval Final PreProcedure Day of Procedure 09/27/22 08:56 Patient weight: normal Heart: regular rate and rhythm Lungs: clear to auscultation Airway: Mallampati scale class II Neurological: alert and oriented Last oral intake: >/= 8 hours ASA classification: III Emergent: no Anesthetic plan: proceed Anesthesia type and monitoring: general GIVS and standard monit
--- NOTE | 2022-09-27 08:57 | PM.HPGS ---
History of Present Illness History of Present Illness Consent: Risks, benefits, and alternatives have been discussed and questions answered. Patient agrees to proceed with procedure. Chief complaint: hx colon polyps Narrative: Shola Bautista is a 66 year old male Presents for screening colonoscopy. Patient's current weight appetite and bowel movements are normal. Patient denies abdominal pain. He has had no bleeding. Patient reports a prior history of adenomatous colon polyp removed in 2019. Patient presents today for surveillance screening colonoscopy. Review of Systems Review of Systems: Review of systems is noncontributory. [facility] Past Medical History Medical History Arthritic-like pain COPD (chronic obstructive pulmonary disease) GERD (gastroesophageal reflux disease) Hyperlipidemia Sleep apnea Surgical History Surgical History H/O arthroscopic knee surgery Bilateral History of carpal tunnel repair Bilateral Hx of appendectomy Hx of repair of left rotator cuff Status post hip surgery Bilateral hip replacements Family History Family History Other No significant family history Social History Social History Smoking packs per day: 1 Smoking cigarettes per day: 20.0 Years smoked: 50 Smoking pack-years: 50.00 Smoking status: Current some day smoker Tobacco type: cigarettes Smokeless tobacco user: chewing tobacco Additional smoking assessment comments: QUIT 2001 Alcohol intake: current Drinks per week: 2 Alcohol use details: Socially Substance use: never Substance use type: does not use Lack of Transportation: No Lack of Food: Never True Current Housing: I Have Housing Concerned About Future Housing: No Difficulty Paying Gas/Electric Bills: No Difficulty Paying for Meds: No Currently Unemployed: No Education: High School Diploma/GED Difficulty w/ Childcare or Family Care: No Living arrangements: other Additional living arrangements comments: With Girlfriend Occupation/Education: retired Gender identity (if verbalized by the patient): Male Spiritual care concerns: No Meds Home Medications and Allergies Home Medications Medication Instructions Recorded Confirmed Type esomeprazole magnesium 40 mg 40 mg PO DAILY PRN Indigestion #90 08/29/21 09/27/22 Rx capsule,delayed release caps acetaminophen 650 mg 650 mg PO Q8H 07/24/22 09/27/22 History tablet,extended release (Tylenol Arthritis Pain) multivitamin (One Daily 1 tablet PO DAILY 07/24/22 09/27/22 History Multivitamin tablet) naproxen sodium 220 mg tablet 220 mg PO Q12H PRN Pain 07/24/22 09/27/22 History (Aleve) albuterol sulfate 90 mcg/actuation 1 inh inhalation Q4-6H PRN 08/23/22 09/27/22 Rx breath activated powder inhaler shortness of breath #1 ea budesonide 160 mcg-glycopyr 9 2 inh inhalation BID #10.7 grams 08/23/22 09/27/22 Rx mcg-formot 4.8 mcg/actuation HFA inhaler (Breztri Aerosphere) sildenafil 100 mg tablet See Rx Instructions .Route 08/30/22 09/27/22 Rx .COMPLEX #30 tabs rizatriptan 10 mg tablet (Maxalt) See Rx Instructions PO .COMPLEX 09/23/22 09/27/22 History PRN migraines Allergies Allergy/AdvReac Type Severity Reaction Status Date / Time Qalziaq-LFX-[id number] Reductase AdvReac Severe Joint Pain Verified 09/27/22 08:41 Inhibitor Vital Signs Vital Signs - 24 hr 09/27/22 08:33 Temperature 97.5 F L Pulse Rate 65 Respiratory Rate 18 Blood Pressure 137/73 Pulse Oximetry 100 Oxygen Delivery Room Air Exam Narrative: Physical exam reveals patient to be alert. Vital signs stable. HEENT exam is unremarkable. Patient is anicteric. Lungs are clear to auscultation and percussion. Heart is with
[2022-09-27 09:47] VITALS: BP 91/62; PULSE 61; RESP 20; O2SAT 96
[2022-09-27 09:57] VITALS: BP 132/93; PULSE 65; RESP 22; O2SAT 98
[2022-09-27 10:07] VITALS: BP 114/81; PULSE 60; RESP 17; O2SAT 99
== END 2022-09-27 10:17 | disposition home or self-care (01) ==
PROVIDERS: PCP Family Medicine; Visit Provider Internal Medicine Gastroenterology
PROC: 0DJD8ZZ Inspection of Lower Intestinal Tract, Via Natural or Artificial Opening Endoscopic (ICD-10-PCS; CPT 45378; principal; 2022-09-27 09:30)
DX: Z12.11 Encounter for screening for malignant neoplasm of colon (principal); K62.1 Rectal polyp; K64.8 Other hemorrhoids; J44.9 Chronic obstructive pulmonary disease, unspecified; E78.5 Hyperlipidemia, unspecified; G47.30 Sleep apnea, unspecified; K21.9 Gastro-esophageal reflux disease without esophagitis; Z79.51 Long term (current) use of inhaled steroids; Z87.891 Personal history of nicotine dependence
CPT/HCPCS: 45385; 88305; J2704; J7120

== ENCOUNTER 2023-04-25 11:50 | Outpatient (CLI) | payer MEDICARE, BC, SELFPAY ==
--- NOTE | ~2023-04-25 | CT_ITS ---
EXAMINATION: CT sinus wo con DATE: 04/25/2023 12:10 INDICATION: Chronic sinusitis TECHNIQUE: Computed tomography (CT) of the paranasal sinuses was performed without contrast. Iterativ e reconstruction technique was employed. Exam dose: 203.72 mGy-cm total exam DLP. COMPARISON: None FINDINGS: There is prominent leftward deviation of the nasal septum. There is prominent relatively symmetric soft tissue swelling of the nasal turbinates, more prominent at the left versus right inferior nasal turbinate. Intralamellar cell of both middle nasal turbinates. Bilateral Eduardo cells. There is mild soft tissue thickening at the right infundibulum, without occlusion. There is mild soft tissue thickening along the anterior roof of the left maxillary sinus, and due to the left maxillary ostium, but the left infundibulum is patent. There is patchy soft tissue thickening of the posterior left ethmoid air cells.. The frontal sinuses, right ethmoid air cells, maxillary and sphenoid sinuses are otherwise unremarkab le. The mastoid air cells are normally developed and aerated. IMPRESSION: Leftward deviation of nasal septum Soft tissue swelling of nasal turbinates Intralamellar cell of both middle nasal turbinates. Bilateral Eduardo cells Mild soft tissue thickening without occlusion of right infundibulum and left maxillary ostium Patchy soft tissue thickening of the posterior left ethmoid air cells Reviewed, dictated and finalized at [facility]. Reviewed, dictated and finalized at location B. 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 Bilateral Eduardo cells Mild soft tissue thickening without occlusion of right infundibulum and left ma xillary ostium Patchy soft tissue thickening of the posterior left ethmoid air cells
[2023-04-25 12:23] LABS: Cholesterol 206 mg/dL (0-200); HDL Direct 32 mg/dL (40-60); LDL Cholesterol Calculated 128 mg/dL (<130); Triglycerides 232 mg/dL (0-150)
[2023-04-25 12:33] LABS: Hemoglobin A1C 5.8 % (<5.7)
== END 2023-04-25 11:51 | disposition home or self-care (01) ==
PROVIDERS: PCP Family Medicine; Visit Provider Family Medicine
DX: E78.5 Hyperlipidemia, unspecified (principal); J32.9 Chronic sinusitis, unspecified; E11.9 Type 2 diabetes mellitus without complications; J34.2 Deviated nasal septum; J34.89 Other specified disorders of nose and nasal sinuses
CPT/HCPCS: 36415; 70486; 80061; 83036

== ENCOUNTER 2023-04-28 08:46 | Outpatient (CLI) | payer MEDICARE, BC, SELFPAY ==
--- NOTE | 2023-05-13 09:14 | WPDPFTINT ---
PFT Procedure Performed PFT Procedure Performed Plethysmography (Lung Vol) Diffusing Cap (DLCO) Flow Vol Loop Spirometry w/o Bronchodil PFT Interpretation DOS: 04/28/2023 REQUESTING: Dr. Emilio Corona REASON FOR TESTING: COPD PULMONARY FUNCTION TESTS Results are reliable and reproducible. Spirometry: FEV1 is 2.76 L, 78%, normal. FVC is 3.70 L, 82%, normal. FEV1/ FVC ratio is 75% normal. No albuterol was administered per the patient's statement that he has side effects from this medication. Lung volumes: Total lung capacity is 5.56 L, 79%, borderline low. The slow vital capacity is 4.20 L, 93%, significantly higher than the forced vital capacity noted in spirometry. The residual volume is 1.36 L, 52% predicted, not increased. RV/TLC is 24%, less than normal. Airway resistance is 112%, normal. Diffusion: DLCO is 21.1, 84%, normal. DLCO / VA 4.34, 118%, normal. Flow volume loop: There is a 'knee' noted n the expiratory limb, a variant of normal. IMPRESSION: This study shows a borderline restrictive impairment with total lung capacity 79% predicted. There is no airflow obstruction. There is no air trapping. Normal diffusion. Clinical correlation is recommended. There are no prior studies for comparison. Kanchan Peterson MD
== END 2023-04-28 08:47 | disposition home or self-care (01) ==
LOC: CHSCARD 08:47
PROVIDERS: PCP Family Medicine; Visit Provider Family Medicine
DX: J44.9 Chronic obstructive pulmonary disease, unspecified (principal)
CPT/HCPCS: 94060; 94726; 94729

== ENCOUNTER 2023-05-27 11:59 | Outpatient (CLI) | payer MEDICARE, BC, SELFPAY ==
[2023-05-27 13:09] LABS: Alveolar/Arterial O2 Gradient 52.2 mmHg; Base Excess ABG -3.2 mEq/l (+/-2.0); Carboxyhemoglobin 4.1 % THb (0-2.0); Fractional Inspired Oxygen 21 %; Methemoglobin ABG 0.2 %THb (0-1.5); Oxygen Content ABG 19.5 %vol (16.0-22.0); Oxygen Saturation ABG 91.7 % (95.0-100.0); PCO2 ABG 31.6 mmHg (35.0-45.0); PO2 ABG 59.7 mmHg (80.0-100.0); PO2 FiO2 Ratio Arterial Blood 2.84 %; Reduced Hemoglobin 7.7 %THb (0-5.0); Total Hemoglobin 15.8 g/dL (12.0-18.0)
[2023-05-27 13:16] LABS: Device ROOM AIR; Site Drawn LEFT BRACHIAL
--- NOTE | 2023-05-27 16:22 | WPDSIXMINUTE ---
Six Minute Walk Procedure Procedure Performed Pulmonary Stress Test (6 min walk) Six Minute Walk Six Minute Walk: This is a 6 minute walk test. The test was performed and interpreted in accordance with the 2014 ERS/ATS task force guidelines. Findings:? The patient's resting room air oxygen saturation measured by pulse oximetry was 94% and heart rate was 78 bpm.? Patient ambulated for 366 meters and oxygen saturation remained 94 to 95%.? Heart rate at the end of the study was 97 bpm. The patient did not qualify for supplemental oxygen at rest or with ambulation. There are no prior studies for comparison.
--- NOTE | 2023-05-27 16:26 | WPDPFTINT ---
PFT Procedure Performed PFT Procedure Performed Plethysmography (Lung Vol) Diffusing Cap (DLCO) Flow Vol Loop Spirometry w/o Bronchodil PFT Interpretation This is a pulmonary function test with spirometry, plethysmography, diffusing capacity, and rest room air arterial blood gas.? The test was performed and results interpreted in accordance with the 2019 and 2005 ATS/ERS Task Force guidelines respectively using the Global Lung Function Initiative-2012 reference equations. Patient demonstrated good effort and cooperation. Reproducibility criteria were met. The quality of the spirometry maneuver was Grade B. Of note, patient had persistent coughing during spirometry.? Patient declined a bronchodilator as this makes him jittery and uncomfortable. Findings: Spirometry:? Expiratory flow tracing demonstrates a notched pattern in 2 of the 4 maneuvers and decreased maximal expiratory airflow in 2 of the 4 maneuvers.? There is notching in all 4 inspiratory maneuvers.? The FVC is 4.07 L, 86% predicted.? The FEV1 is 2.36 L, 66% predicted.? The pre bronchodilator FEV1: FVC ratio is 58%.? Plethysmography:? The total lung capacity is 5.52 L, 74% predicted.? The functional residual capacity is 3.39 L, 86% predicted.? The residual volume is 1.44 L, 58% predicted.? Diffusing capacity:? The diffusing capacity unadjusted for hemoglobin and carboxyhemoglobin is 19.6, 70% predicted.? The diffusing capacity adjusted for alveolar volume is 4.14, 105% predicted. Rest room air arterial blood gas: PH 7.42, PaCO2 32, PaO2 60. In comparison to pulmonary function testing performed on 04/28/2023 the notched expiratory flow tracing was present on 1 and currently is present on 2.? There was no notching of the inspiratory flow tracing previously.? The FVC is unchanged from 3.70 L to 4.07 L.? The FEV1 is decreased from 2.76 L to 2.36 L.? The total lung capacity is unchanged from 5.56 L to 5.52 L.? The functional residual capacity is increased from 2.50 L to 3.39 L. the residual volume is unchanged from 1.36 L to 1.44 L. the diffusing capacity unadjusted for hemoglobin and carboxyhemoglobin is unchanged from 21.1 to 9.6.? The diffusing capacity adjusted for alveolar volume is unchanged from 4.34 to 4.14. Impression:? The notched pattern has been described with coughing or tracheobronchomalacia.? The commercial hvac service technician noted coughing during this testing. There is a combined obstructive and restrictive ventilatory abnormality.? There are no guidelines to assign the severity of obstruction and restriction with a combined abnormality.? In my opinion, given the moderately concave expiratory flow tracing, decreased FEV1: FVC ratio and mild restrictive abnormality I would state there is a moderate obstructive abnormality and a mild restrictive abnormality resulting in a moderate decrease in the FEV1.? The diffusing capacity unadjusted for hemoglobin and carboxyhemoglobin is mildly decreased and normalizes when adjusted for alveolar volume.? The rest room air arterial blood gas demonstrates a combined respiratory alkalosis and metabolic acidosis with PaO2 below the lower limit of normal for patient's age but less than that required for supplemental oxygen. In comparison to previous pulmonary function testing on 04/28/2023 the notched expiratory flow tracing persists and there is now an notched inspiratory flow tracing.? There was a greater than anticipated time dependent decrease in the FEV1.? There is a greater than anticipated time dependent increase in the residual volume with no significant change in the FVC, total lung capacity, residual volume or diffusing capacity. Clinical correlation is recommended.
== END 2023-05-27 12:00 | disposition home or self-care (01) ==
LOC: ANHPFT 11:59
PROVIDERS: PCP Family Medicine; Visit Provider Internal Medicine Pulmonary Disease
DX: J44.9 Chronic obstructive pulmonary disease, unspecified (principal); R94.2 Abnormal results of pulmonary function studies
CPT/HCPCS: 36600; 82375; 82805; 83050; 94375; 94618; 94726; 94729

== ENCOUNTER 2023-07-05 10:33 | Outpatient (CLI) | payer MEDICARE, BC, SELFPAY ==
--- NOTE | ~2023-07-05 | MR_ITS ---
EXAMINATION: MR IAC wo/w con DATE: 07/05/2023 12:58 INDICATION: Bilateral sensorineural hearing loss TECHNIQUE: Magnetic resonance imaging (MRI) of the brain and brainstem was performed without and with 20 mL Multihance intravenous contrast. Sequences included sagittal and axial T1-weighted FSE, axial diffusion-weighted FS EPI, axial T2*-weighted GRE, axial T2-weighted FLAIR Propeller, axial T2-weight ed Propeller, small owrln-wm-qeyp coronal FIESTA, small oqcfo-gl-sdnx coronal T1-weighted FSE, and sm all onijd-zh-laei axial T1-weighted SPGR. Postcontrast sequences included axial T1-weighted FSE, smal l bckby-mx-bfen coronal T1-weighted FSE, and small deczy-dj-kwtm axial T1-weighted SPGR. Apparent dif fusion coefficient (ADC) maps were created. COMPARISON: None. FINDINGS: There are no areas of restricted diffusion to suggest acute infarction. No intracranial hemorrhage or abnormal intracranial mass lesion. There are no intraparenchymal signal abnormalities seen on the ot her pulse sequences. The ventricles are symmetric and normal in size. There are no abnormal extra-axi al fluid collections. Flow voids are seen in the cerebral arteries on the T2-weighted sequences consi stent with their expected patency. Normal right seventh/eighth cranial nerve complex. The left 7th an d 8th cranial nerves appear normal medial to a mass filling the left external auditory canal which me asures approximately 8 mm medial to lateral and up to 4 x 4 mm in orthogonal dimensions. The lesion i s hyperintense on the post contrast imaging but is similar degree on the precontrast T1-weighted imag ing and there is no significant associated enhancement on the MP rage sequence. Correlation with prio r sinus CT demonstrates fat attenuation within the internal auditory canal and which would be consist ent with lipoma rather than schwannoma. No other cerebellopontine angles masses or other abnormally e nhancing lesions identified. No evidence of mastoid or middle ear fluid. Mild mucosal thickening the ethmoid sinuses. Visualized orbits and soft tissues are unremarkable. IMPRESSION: 1. 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 Reviewed, dictated and finalized at location A.
== END 2023-07-05 10:34 | disposition home or self-care (01) ==
LOC: CHSIMG 10:34
PROVIDERS: PCP Family Medicine; Visit Provider Otolaryngology
DX: H90.3 Sensorineural hearing loss, bilateral (principal); R22.0 Localized swelling, mass and lump, head
CPT/HCPCS: 70553; A9577

== ENCOUNTER 2023-08-29 07:17 | Outpatient (CLI) | payer MEDICARE, BC, SELFPAY ==
--- NOTE | ~2023-08-29 | CT_ITS ---
CT Scan of the Chest without Contrast: Clinical Indication: Lung cancer screening, nicotine dependence Technique: Contiguous sections were acquired throughout the chest without intravenous contrast. Dose reduction technique was used on this scan by utilizing automated exposure control and iterative recon struction technique. The dose-length product (DLP) was 107.94 mGy-cm. COMPARISON: 08/26/2022 Findings: There is no evidence of any significant mediastinal, hilar or axillary lymphadenopathy. The mediastin al soft tissues appear normal. There is no evidence of pleural or pericardial effusion. The lungs are clear. No pulmonary nodules or infiltrates are noted. Images through the upper abdomen reveal no abnormalities. Impression: Lung RADS 1: Negative. 12 month follow-up screening CT advised. Reviewed, dictated and finalized at location . Impression: Lung RADS 1: Negative. 12 month follow-up screening CT advised.
--- NOTE | ~2023-08-29 | DEXA_ITS ---
? Bone Density Report? Name:? GAMALIEL SIMMONS Patient ID:??? [id number] Age:? 67 Sex:? Male Ethnicity:? White Date of : 1955 Indication: history of glucocorticoids; prior fracture; asthma or emphysema; Referring Provider: CHIKI GREGORY Study: Bone densitometry was performed. Exam Date: August 29, 2023 Accession number: [id number] Bone Density: Region? BMD??? T-score? Z-score?? Classification AP Spine(L1, L3, L4)? 0.992?? -0.9? -0.1? Normal World Health Organization criteria for BMD impression classify patients as: Normal (T-score at or above -1.0), Osteopenia (T-score between -1.0 and -2.5), or Osteoporosis (T-score at or below -2.5). Clinical Information Provided by Patient: Have had a previous hip or vertebral fracture Has had a low trauma fracture Smokes Has taken Glucocorticoids Has the following medical conditions: Asthma or Emphysema Patient maximum height was 70 No regular weight bearing exercise Drinks caffeinated beverages Impression: The patient has normal bone mass. The patient has risk factors, including: smoking, previous fracture, history of glucocorticoid therapy. Discussion: INCREASED RISK OF FRACTURE DUE TO HISTORY OF LOW TRAUMA FRACTURE. The patient's previous fracture puts the patient at high risk of a future fracture. In untreated patients, the risk of osteoporotic fracture increases approximately two-fold for each 1.0 SD decrease in T-score.? Low bone density is not the only risk factor for fracture; also consider factors such as patient's age, frailty or poor health, risk of falling, risk of injury, previous osteoporotic fracture, family history of osteoporosis, cigarette smoking, low body weight, etc.? Not everyone with a low trauma fracture has osteoporosis; osteomalacia and other metabolic bone disorders should also be considered. Patients who have osteoporosis should be evaluated for specific diseases and conditions (secondary causes) that may cause or contribute to bone loss and fracture risk. National Osteoporosis Foundation (NOF) recommends pharmacologic intervention for patients with a prior low trauma hip or vertebral fracture regardless of BMD T- score. The patient should follow a healthful lifestyle (good nutrition with adequate calcium and vitamin D, and appropriate weight-bearing exercise). Follow-Up: Consider a repeat BMD and Vertebral Fracture Assessment (VFA) exam in 2 years or sooner if medically necessary, to reassess this patient's status. Reported by: Dr. Rob Baldwin on :32:00 PM. LOGAN
== END 2023-08-29 07:18 | disposition home or self-care (01) ==
LOC: CHSIMG 07:19
PROVIDERS: PCP Family Medicine; Visit Provider Nurse Practitioner Family
DX: Z12.2 Encounter for screening for malignant neoplasm of respiratory organs (principal); Z79.52 Long term (current) use of systemic steroids; Z87.891 Personal history of nicotine dependence
CPT/HCPCS: 71271; 77080

== ENCOUNTER 2024-01-10 07:26 | Emergency (ER) | payer MEDICARE, BC, SELFPAY ==
[2024-01-10 07:30] VITALS: BP 146/97; PULSE 63; RESP 17; TEMP 36.2; O2SAT 97
--- NOTE | 2024-01-10 07:30 | ED.GENADULT ---
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 He wears safety glasses also wears contact lenses. He went to sleep feeling okay and then woke up at approximately 4:00 a.m. with severe pain in his right eye. He does note that he sleeps in his contact lenses. He removed the contact lenses and irrigated his eye but continued to have pain. He took 800 mg dose of ibuprofen with no relief. He presents to the emergency department due to refractory pain. no other injuries or complaints. Related Data Home Medications Medication Instructions Recorded Confirmed naproxen sodium 220 mg capsule 220 mg PO BID PRN 06/11/23 09/16/23 (Aleve) Allergies Allergy/AdvReac Type Severity Reaction Status Date / Time doxycycline Allergy Intermediate Hives Verified 09/16/23 09:34 Oppvkqu-CKR-JcV Reductase AdvReac Severe Joint Pain Verified 09/16/23 09:34 Inhibitor amoxicillin Allergy Intermediate hives Uncoded 09/16/23 09:34 [facility] Past Medical History Medical History Arthritic-like pain COPD (chronic obstructive pulmonary disease) GERD (gastroesophageal reflux disease) Hyperlipidemia Prediabetes Sleep apnea Surgical History Surgical History H/O arthroscopic knee surgery Bilateral History of carpal tunnel repair Bilateral Hx of appendectomy Hx of repair of left rotator cuff Status post hip surgery Bilateral hip replacements Family History Family History Other No significant family history Social History Social History (Updated 08/13/23 @ 10:07 by Jasmeet Xiao RN) Smoking packs per day: 1 Smoking cigarettes per day: 20.0 Years smoked: 50 Smoking pack-years: 50.00 Smoking status: Current every day smoker Tobacco type: cigarettes Smokeless tobacco user: chewing tobacco Additional smoking assessment comments: QUIT 2001 Alcohol intake: former Do You Feel Safe in your Home?: Yes Lack of Transportation: No Lack of Food: Never True Current Housing: I Have Housing Concerned About Future Housing: No Difficulty Paying Gas/Electric Bills: No Difficulty Paying for Meds: No Currently Unemployed: No Education: High School Diploma/GED Difficulty w/ Childcare or Family Care: No Living arrangements: other Additional living arrangements comments: With Girlfriend Occupation/Education: retired Gender identity (if verbalized by the patient): Male Spiritual care concerns: No Exam Narrative: PERRLA. EOM intact. Staining with fluorescein dye shows 4-5 1-2mm superficial abrasions with increased dye uptake between the 9:00 o'clock and 12 o'clock position between the pupil and the margin of the iris. Vision is blurry in the eye on exam however this is close to the patient's baseline uncorrected vision per patient. Course Vital Signs Vital signs: Vital Signs Temperature 36.2 C L 01/10/24 07:30 Pulse Rate 63 01/10/24 07:30 Respiratory Rate 17 01/10/24 07:30 Blood Pressure 146/97 H 01/10/24 07:30 Pulse Oximetry 97 01/10/24 07:30 Oxygen Delivery Room Air 01/10/24 07:30 Temperature 36.2 C L 01/10/24 07:30 Pulse Rate 63 01/10/24 07:30 Respiratory Rate 17 01/10/24 07:30 Blood Pressure 146/97 H 01/10/24 07:30 Pulse Oximetry 97 01/10/24 07:30 Oxygen Delivery Room Air 01/10/24 07:30 Medical Decision Making MDM Narrative Medical decision making narrative: Patient was placed in Room #:? 1 Independent Historian: the patient is External Source Review: none Differential diagnosis includes but not limited to:? corneal abrasion, foreign body in eye, chemical irritation Medications were Reviewed: patient's home medications
--- NOTE | 2024-01-10 07:35 | PC.NURSE ---
Elena and I set up room for eye exam; flushed right eye with saline after exam till eye was clear
[2024-01-10] MEDS: TETRACAINE HCL 0.5% OPHTH SOLN 4 ML BTL 1 DROP EACH EYE (07:39)
[2024-01-10] MEDS: FLUORESCEIN SOD 1 MG/STRIP EACH EYE (07:39)
[2024-01-10] MEDS: DACRIOSE EYE IRRIGATION 118 ML BOTTLE 10 ML RIGHT EYE (07:40)
== END 2024-01-10 08:08 | disposition home or self-care (01) ==
PROVIDERS: Emergency Provider Family Medicine; PCP Family Medicine
DX: S05.01XA Injury of conjunctiva and corneal abrasion without foreign body, right eye, initial encounter (principal); E78.5 Hyperlipidemia, unspecified; J44.9 Chronic obstructive pulmonary disease, unspecified; F17.210 Nicotine dependence, cigarettes, uncomplicated; X58.XXXA Exposure to other specified factors, initial encounter
CPT/HCPCS: 99283; A9270

== ENCOUNTER 2024-04-02 09:11 | Outpatient (CLI) | payer MEDICARE, BC, SELFPAY ==
[2024-04-02 09:30] LABS: Basophils Absolute Auto 0.05 K/mm3 (0.00-0.10); Basophils Percent Auto 0.8 % (0.0-1.0); Eosinophils Absolute Auto 0.14 K/mm3 (0.02-0.50); Eosinophils Percent Auto 2.2 % (1.0-6.0); Hematocrit 42.5 % (37.0-46.0); Hemoglobin 14.6 g/dL (12.4-15.3); Immature Granulocyte Absolute 0.01 K/mm3 (0.00-0.00); Immature Granulocyte Percent A 0.2 % (0.0-0.0); Lymphocytes Absolute Auto 1.57 K/mm3 (1.10-4.50); Lymphocytes Percent Auto 25.1 % (18.0-42.0); Mean Corpuscular HGB Conc 34.4 g/dL (32-36); Mean Corpuscular Hemoglobin 30.8 pg (27.0-31.0); Mean Corpuscular Volume 89.7 fL (78.0-102.0); Mean Platelet Volume 9.2 fl (8.7-11.0); Monocytes Absolute Auto 0.58 K/mm3 (0.10-0.90); Monocytes Percent Auto 9.3 % (2.0-11.0); Neutrophils Percent Auto 62.4 % (50.0-70.0); Platelet Count Result 251 K/mm3 (150-420); Red Blood Count 4.74 M/mm3 (4.70-6.10); Red Cell Distribution Width 13.2 % (11.6-14.4); White Blood Count 6.3 K/mm3 (4.8-10.8)
[2024-04-02 09:34] LABS: Creatinine Urine 156.56 mg/dL (40-278); MALB Creatinine Ratio 8.3 mg/g (0-30); Microalbumin Urine Random < 13.0 mg/L
[2024-04-02 09:36] LABS: Hemoglobin A1C 5.6 % (<5.7)
[2024-04-02 10:39] LABS: Alanine Aminotransferase 24 U/L (16-63); Albumin Level 3.6 g/dL (3.4-5.0); Alkaline Phosphatase 111 U/L (46-116); Anion Gap 8 mmol/L (4-12); Aspartate Amino Transferase 18 U/L (15-37); Bilirubin,Total 0.3 mg/dL (0.00-1.00); Blood Urea Nitrogen 22 mg/dL (7-18); Calcium 9.3 mg/dL (8.5-10.1); Carbon Dioxide 27 mmol/L (21-32); Chloride 103 mmol/L (98-108); Cholesterol 207 mg/dL (0-200); Estimated Glomerular Filt Rate > 60; Glucose 98 mg/dL (70-99); HDL Direct 37 mg/dL (40-60); LDL Cholesterol Calculated 147 mg/dL (<130); Osmolality Calculated 289 mOsm/kg (285-295); Potassium 4.3 mmol/L (3.5-5.1); Sodium 138 mmol/L (136-145); Total Protein 6.8 g/dL (6.4-8.2); Triglycerides 116 mg/dL (0-150)
[2024-04-02 10:55] LABS: Thyroid Stimulating Hormone Reflex 0.75 u/IU/mL (0.36-3.74)
== END 2024-04-02 09:12 | disposition home or self-care (01) ==
LOC: CHSLAB 09:11
PROVIDERS: PCP Family Medicine; Visit Provider Family Medicine
DX: E03.9 Hypothyroidism, unspecified (principal); J44.9 Chronic obstructive pulmonary disease, unspecified; E11.9 Type 2 diabetes mellitus without complications
CPT/HCPCS: 36415; 80053; 80061; 82043; 83036; 84443; 85025

== ENCOUNTER 2024-04-09 13:20 | Outpatient (NON) | payer MEDICARE, BC, SELFPAY | END 2024-04-09 13:21 | disposition home or self-care (01) | LOC: CHSLAB 13:24 | PROVIDERS: Visit Provider Family Medicine | DX: L82.1 Other seborrheic keratosis (principal) | CPT/HCPCS: 88305 ==

== ENCOUNTER 2024-08-30 13:36 | Outpatient (CLI) | payer MEDICARE, BC, SELFPAY ==
--- NOTE | ~2024-08-30 | CT_ITS ---
CT Scan of the Chest without Contrast: Clinical Indication: Lung cancer screening, nicotine dependence Technique: Contiguous sections were acquired throughout the chest without intravenous contrast. Dose reduction technique was used on this scan by utilizing automated exposure control and iterative recon struction technique. The dose-length product (DLP) was 121.64 mGy-cm. COMPARISON: 08/29/2023 Findings: There is no evidence of any significant mediastinal, hilar or axillary lymphadenopathy. The mediastin al soft tissues appear normal. There is no evidence of pleural or pericardial effusion. The lungs are clear. No pulmonary nodules or infiltrates are noted. Images through the upper abdomen reveal no abnormalities. Impression: Lung RADS 1: Negative. 12 month follow-up screening CT advised. Reviewed, dictated and finalized at location . Impression: Lung RADS 1: Negative. 12 month follow-up screening CT advised.
--- OUTSIDE RECORDS SUMMARY | 2024-08-30 13:40 | XMS_ITS | Clinical Summary ---
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 Name Role Phone Unavailable Primary Care Provider Unavailabl e Social History Tobacco Use Types Packs/Day Years Used Date Smoking Tobacco: Never Assessed Sex and Gender Information Value Date Recorded Sex Assigned at Not on file Legal Sex Male 10:24 PM PEDORTHIST Gender Identity Not on file Sexual Orientation Not on file Last Filed Vital Signs Vital Sign Reading Time Taken Comments Blood Pressure 122/72 07/15/2018 2:00 PM CDT Pulse 76 07/15/2018 2:00 PM CDT Temperature - - Respiratory Rate - - Oxygen Saturation - - Inhaled Oxygen Concentration - - Weight 92.5 kg (204 lb) 07/15/2018 2:00 PM CDT Height 182.9 cm (6') 07/15/2018 2:00 PM CDT Body Mass Index 27.67 07/15/2018 2:00 PM CDT Plan of Treatment Health Maintenance Due Date Last Done Comments Colorectal Cancer Screening Colonoscopy (10 Years) 1955 Hepatitis C 1974 DTaP, Tdap and Td Vaccines ( 1 - Tdap) 12/15/1975 Zoster Vaccines (1 of 2) 2006 Pneumococcal Vaccine: 50+ Ye ars (2 of 2 - PCV) 07/31/2013 07/31/2012 COVID-19 Vaccine ( - 2023-2 5 season) 2023 RSV Immunization or 60+ Years (1 - 1-dose 75+ series) 12/15/2031 Meningococcal B Vaccine Aged Out No l onger eligible based on patient's age to complete this topic Meningococcal Vaccine Aged Out No shan eladio eligible based on patient's age to complete this topic RSV Immunizations Under 20 Months Aged Out No longer eligible based on patient's age to complete this topic
--- OUTSIDE RECORDS SUMMARY | 2024-08-30 13:40 | XMS_ITS | Referral Summary ---
Author Organization [address] Address [address] [place] [address] [place] [id number] Care Team Providers Care Cow Tester Name Role Phone Unknown, Notinfile Primary Care Provider Unavail able Allergies No known active allergies Medications azelastine (ASTELIN) 137 mcg (0.1 %) nasal spray [address] (NexIUM) 40 mg capsule 4 Active fluticasone propionate (FLONASE) 50 mcg/actuation nasal spray 4 Active predniSONE (DELTASONE) 5 mg tablet 4 Active rizatriptan (MAXALT) 10 mg tablet 4 Active Ozempic 0.25 mg or 0.5 mg (2 mg/3 mL) pen injector injection INJECT 0.5MG SUBCUTANEOUSLY WEEKLY FOR 4 WEEKS 4 Active tamsulosin (FLOMAX) 0.4 mg extended release capsule 4 Active Active Problems Problem Noted Date Diagnosed Date Internal auditory canal abnormality 09/09/2023 Retained myringotomy tube in left ear 09/09/2023 Retained myringotomy tube in right ear 4 Social History Tobacco Use Types Packs/Day Years Used Date Smoking Tobacco: Every Day Cigarettes Tobacco Cessation:Ready to Q uit: Not Asked; Counseling Given: Not Answered Sex and Gender Information Value Date Recorded Sex Assigned at Not on file Legal Sex Male 1:24 PM CASINO HOST Gender Identity Not on file Sexual Orientation Not on file Plan of Treatment Not on file Insurance MEDICARE [email or web address] [place]IC[place] [email or web address] [place] Care Teams Cow Tester Relationship Specialty Start Date End Date Unknown, Notinfile PCP - General 09/01/23
--- OUTSIDE RECORDS SUMMARY | 2024-08-30 13:40 | XMS_ITS | Encounter Summary ---
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
--- OUTSIDE RECORDS SUMMARY | 2024-08-30 13:40 | XMS_ITS | Clinical Summary ---
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 Gender Identity Not on file Sexual Orientation Not on file Plan of Treatment Health Maintenance Due Date Last Done Comments Hepatitis C Virus (HCV) Screening 1955 TdaP Immunization 1955 Cologuard 2006 Immunochemical Fecal Occult Blood 2006 Pneumococcal Immunization (5 0+ years) (1 of 1 - PCV) 2006 Zoster Immunization (1 of 2) 2006 PSA Discussion 12/15/2011 Colonoscopy 03/25/2022 03/25/2019 Colorectal Cancer Screening 03/25/2022 Influenza Immunization (#1) 2023 SARS-COV-2 Immunization ( season) 2023 Respiratory Syncytial Virus (RSV) Immunization (Adult) (1 - 1-dose 75+ series) 12/15/2031 03/25/2019 Hepatitis B Immunization Aged Out No longer eligible based on patient's age to complete this topic Meningococcal Immunization (ACWY) Aged Out No longer eligible based on patient's age to complete this topic Rotavirus Immunization Aged Out No lo nger eligible based on patient's age to complete this topic Procedures Procedure Name Priority Date/Time Associated Diagnosis Comments COLONOSCOPY Routine 03/25/2019 from Last 3 Months or Most Recently Relevant to Health Maintenance Results * HM COLONOSCOPY (03/25/2019) Nicolas Ricci DO PROCEDURE/MINOR SURGICAL ORDERA BLES Final Result from Last 3 Months or Most Recently Relevant to Health Maintenance Insurance MEDICARE [facility] Care Teams Facilities Locator Relationship Specialty Start Date End Date Jori Otero MD [address] [place] [address] PCP - General Internal Medicine 03/31/19
--- OUTSIDE RECORDS SUMMARY | 2024-08-30 13:40 | XMS_ITS | Clinical Summary ---
Author Organization [address] Address [address] [place] [address] [place] [address] Care Team Providers Care Travel Rn Or Name Role Phone Unknown, Notinfile Primary Care [...] Retained myringotomy tube in right ear 4 Surgical History Surgery Date Site/Laterality Comments KNEE ARTHROSCOPY Bilateral APPENDECTOMY CARPAL TUNNEL RELEASE Bilateral ROTATOR CUFF REPAIR Left HIP ARTHROPLASTY Bilateral Medical History Medical History Date Comments COPD (chronic obstructive pulmonary disease) (HC C) GERD (gastroesophageal reflux disease) Hyperlipidemia Arthritis Asthma Migraine Sleep apnea Tinnitus Social History Tobacco Use Types Packs/Day Years Used Date Smoking Tobacco: Every Day Cigarettes Tobacco Cessation:Ready to Q uit: Not Asked; Counseling Given: Not Answered Sex and Gender Information Value Date Recorded Sex Assigned at Not on file 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 Gender Identity Not on file Sexual Orientation Not on file Obstetrics History Plan of Treatment Health Maintenance Due Date Last Done Comments Colon Cancer Screening-Colonoscopy 1955 Depression Screening 1956 Fall Risk Assessment 1955 Hepatitis C Screening 1956 Prostate Cancer Screening-PSA 1956 Hepatitis B Screening 1974 Pneumococcal vaccine 65+ (1 of 2 - PCV) 12/15/1975 Zoster Vaccine (1 of 2) 2006 Abdominal Aortic Aneurysm (AAA) Screen 2021 Well Visit 65+ 2021 Influenza Vaccine (#1) 2023 DTaP/Tdap/Td Vaccine (2 - Td or Tdap) 02/19/202904/2018 Insurance MEDICARE [facility] MEDICARE [facility] Care Teams Travel Rn Or Relationship Specialty Start Date End Date Unknown, Notinfile PCP - General 09/01/23
== END 2024-08-30 13:37 | disposition home or self-care (01) ==
LOC: CHSIMG 13:37
PROVIDERS: PCP Family Medicine; Visit Provider Internal Medicine Pulmonary Disease
DX: Z12.2 Encounter for screening for malignant neoplasm of respiratory organs (principal); Z87.891 Personal history of nicotine dependence
CPT/HCPCS: 71271